=== PATIENT | male | born 1990 | race Caucasian/White ===

== ENCOUNTER 2021-03-10 13:53 | Outpatient (CLI) | payer OTHER ==
[~2021-03-10] VITALS: Ht 190.5 cm; Wt 93.0 kg
[2021-03-10 14:27] LABS: HEMOGLOBIN 13.7 g/dl (13.5-18.0); MEAN CELL VOLUME 90 fl (80.0-100.0); MEAN CORPUSCULAR HEMOGLOBIN 32 pg (27.0-31.0); MEAN CORPUSCULAR HGB CONC 35 g/dl (33.0-37.0); MEAN PLATELET VOLUME 8.7 fl (7.4-10.4); PLATELET COUNT 309 K/mm3 (130-400); RED BLOOD COUNT 4.33 M/mm3 (4.20-5.60); REDCELL DISTRIBUTION WIDTH-CV 11.7 % (11.5-14.5)
[2021-03-10 14:43] LABS: INR 1.1 (0.8-3.0); PROTHROMBIN TIME 12.6 SECONDS (9.7-12.8)
--- NOTE | 2021-03-10 16:00 | NUR ---
Discharge instructions given by alix Hinojosa.Pt verbalizes understanding.Pt escorted out.
== END 2021-03-10 16:06 ==
LOC: COL.CAR 13:53
PROVIDERS: Internal Medicine Interventional Cardiology
DX: R00.2 Palpitations (principal); R55 Syncope and collapse
CPT/HCPCS: C1764